=== PATIENT | female | born 1990 | race Caucasian/White ===

== ENCOUNTER 2020-03-12 22:05 | Emergency (ER) | payer MEDICAID ==
[~2020-03-12] VITALS: Ht 154.9 cm; Wt 60.0 kg
[2020-03-12 23:01] VITALS: BP 110/62
== END 2020-03-12 23:04 | disposition home or self-care (01) ==
LOC: ER 22:05
DX: O26.891 Other specified pregnancy related conditions, first trimester (principal); Z3A.13 13 weeks gestation of pregnancy; R09.81 Nasal congestion; J30.9 Allergic rhinitis, unspecified
CPT/HCPCS: 81025; 99282

== ENCOUNTER 2020-03-24 00:02 | Emergency (ER) | payer MEDICAID ==
[~2020-03-24] VITALS: Ht 157.5 cm; Wt 57.0 kg
[2020-03-24 00:03] VITALS: BP 108/70
[2020-03-24] MEDS ORDERED: ACETAMINOPHEN 325MG TABLET PO ONE (00:30)
== END 2020-03-24 01:42 | disposition home or self-care (01) ==
LOC: ER 00:02
DX: L03.116 Cellulitis of left lower limb (principal); M79.672 Pain in left foot; Z98.890 Other specified postprocedural states
CPT/HCPCS: 93971; 99284

== ENCOUNTER 2020-11-09 03:53 | Emergency (ER) | payer MEDICAID ==
[~2020-11-09] VITALS: Ht 157.5 cm; Wt 63.0 kg
[2020-11-09] MEDS ORDERED: METHOCARBAMOL 500MG TABLET PO ONE (04:30)
[2020-11-09] MEDS ORDERED: LIDOCAINE 5% PATCH TOP SCH (04:30)
[2020-11-09] MEDS ORDERED: KETOROLAC 60MG/2ML VIAL IM ONE (04:30)
[2020-11-09] MEDS ORDERED: LIDO1ADH5 TP (05:25)
[2020-11-09] MEDS ORDERED: NAPR-681 MT (05:25)
[2020-11-09] MEDS ORDERED: METH-773 MT (05:25)
[2020-11-09] MEDS ORDERED: TRAMADOL 50MG TABLET PO ONE (06:00)
[2020-11-09 06:05] VITALS: BP 120/62
== END 2020-11-09 06:15 | disposition home or self-care (01) ==
LOC: ER 03:53
DX: S39.012A Strain of muscle, fascia and tendon of lower back, initial encounter (principal); Z88.0 Allergy status to penicillin; Z98.890 Other specified postprocedural states; X50.0XXA Overexertion from strenuous movement or load, initial encounter; Y93.89 Activity, other specified; Y92.018 Other place in single-family (private) house as the place of occurrence of the external cause
CPT/HCPCS: 96372; 99284; J1885

== ENCOUNTER 2021-12-07 16:02 | Emergency (ER) | payer MEDICAID ==
[~2021-12-07] VITALS: Ht 157.5 cm; Wt 55.0 kg
[~2021-12-07 16:02] MED LIST: LIDO1ADH5 TP; METH-773 MT; NAPR-681 MT
[2021-12-07] MEDS ORDERED: KETOROLAC 60MG/2ML VIAL IM ONE (19:45)
[2021-12-07] MEDS ORDERED: TRAM50TA3 MT (20:26)
[2021-12-07] MEDS ORDERED: NAPR275T96 MT (20:26)
[2021-12-07] MEDS ORDERED: METH-773 MT (20:26)
[2021-12-07 21:45] VITALS: BP 110/65
== END 2021-12-07 21:45 | disposition home or self-care (01) ==
LOC: ER 16:02
DX: M54.32 Sciatica, left side (principal); Z88.0 Allergy status to penicillin; Z98.890 Other specified postprocedural states
CPT/HCPCS: 81025; 96372; 99283; J1885

== ENCOUNTER 2023-01-16 19:59 | Emergency (ER) | payer MEDICAID ==
[~2023-01-16] VITALS: Ht 162.6 cm; Wt 57.0 kg
[~2023-01-16 19:59] MED LIST changes: +NAPR275T96 MT; +TRAM50TA3 MT
[2023-01-16 21:19] LABS: BASOPHILS % 0.2 % (0.0-2.0); HEMOGLOBIN. 14.6 g/dL (12.0-16.0); LYMPHOCYTES % 13.9 % (20.0-50.0); MEAN CORPUSCULAR HEMOGLOBIN 30.8 pg (28.0-32.0); MEAN CORPUSCULAR HGB CONC 34.7 g/dL (31.0-37.0); MEAN CORPUSCULAR VOLUME 88.8 fL (81.0-99.0); MEAN PLATELET VOLUME 7.2 fl (7.4-10.4); NEUTROPHILS % 74.9 % (40.0-76.0); PLATELET 243 x1000/uL (130-400); RED BLOOD CELL COUNT 4.73 mill/uL (4.2-5.4); WHITE BLOOD COUNT 11.6 x1000/uL (4.5-11.0)
[2023-01-16 21:25] LABS: PROTHROMBIN TIME 10.6 sec (9.6-11.0)
[2023-01-16 21:29] LABS: CHLORIDE 108 mEq/L (98-107); INDEX HEMOLYSI 1 (1-3); INDEX ICTERIC 1 (1-4); INDEX LIPEMIC 1 (1-3); SODIUM 138 mEq/L (136-145)
[2023-01-16 21:39] LABS: ALANINE AMINOTRANSFERASE 22 IU/L (13-61); ALBUMIN 4.2 g/dL (3.4-5.0); ASPARTATE AMINOTRANSFERASE 19 IU/L (15-37); BILIRUBIN TOTAL 0.4 mg/dL (0.1-1.0); CALCIUM 9.2 mg/dL (8.5-10.1); CARBON DIOXIDE 25 mEq/L (21-32); CREATININE 0.5 mg/dL (0.6-1.3); GLUCOSE 92 mg/dL (70-105); NT PRO B-TYPE NATRIURETIC PEP 93 pg/mL (5-125); PROTEIN TOTAL 8.1 g/dL (6.0-8.3); UREA NITROGEN BLOOD 12 mg/dL (7-21)
[2023-01-16 21:43] LABS: TROPONIN I HIGH SENSITIVITY < 4 ng/L (<54)
[2023-01-16] MEDS ORDERED: ALBUTEROL (0.083%) 2.5MG/3ML NEB HHN STA (22:04)
[2023-01-16] MEDS ORDERED: IPRATROPIUM BROMIDE (0.02%) 0.5MG/2.5ML NEB HHN STA (22:04)
[2023-01-16] MEDS ORDERED: PREDNISONE 20MG TABLET PO STA (22:04)
[2023-01-16 22:25] VITALS: PULSE 86; RESP 18; O2SAT 95
[2023-01-17] MEDS ORDERED: ALBU6.7H3 INH (00:32)
[2023-01-17] MEDS ORDERED: P20 MT (00:41)
[2023-01-17 00:53] VITALS: BP 130/72; PULSE 84; RESP 18; TEMP 98.7
== END 2023-01-17 00:53 | disposition home or self-care (01) ==
LOC: ER 21:51
DX: J45.901 Unspecified asthma with (acute) exacerbation (principal); Z98.890 Other specified postprocedural states; Z79.899 Other long term (current) drug therapy
CPT/HCPCS: 80053; 83880; 85025; 85610; 84484; 36415; 71045; 93005; 94644; 99285; J7512; Z7610 ×3